=== PATIENT | female | born 1990 | race Caucasian/White ===

== ENCOUNTER 2018-03-20 07:09 | Emergency (ER) | payer MEDICAID ==
[~2018-03-20] VITALS: Ht 157.5 cm; Wt 84.1 kg
[2018-03-20 07:28] LABS: CLARITY,URINE CLEAR (Clear); COLOR,URINE YELLOW (Yellow); GLUCOSE, URINE NEGATIVE (Neg); KETONES,URINE NEGATIVE (Neg); LEUKOCYTE ESTERASE ,URINE NEGATIVE (Neg); NITRITES, URINE NEGATIVE (Neg); OCCULT BLOOD,URINE SMALL (Neg); PROTEIN,URINE TRACE mg/dl (Neg); URINE HCG NEGATIVE (NEG); UROBILINOGEN,URINE 0.2 E.U/dL (0.2-1.0)
[2018-03-20 07:32] LABS: UA COLLECTION TYPE CLN CATCH MIDSTREAM
[2018-03-20 07:37] LABS: BACTERIA,URINE 2+ /HPF (Neg); MUCUS STRANDS MODERATE /LPF (Neg); RBC,URINE 0-2 /HPF (0-2); SQUAMOUS EPITHELIAL CELL,UR MANY /LPF (FEW)
[2018-03-20 07:54] LABS: BASOPHILS # (AUTO) 0.1 X10'3 (0-0.2); BASOPHILS % (AUTO) 0.7 % (0-1); EOSINOPHILS # (AUTO) 0.4 X10'3 (0-0.9); EOSINOPHILS % (AUTO) 3.2 % (0-6); HEMATOCRIT 43.1 % (35.0-45.0); HEMOGLOBIN 14.4 g/dl (12.0-16.0); LYMPHOCYTES # (AUTO) 3.9 X10'3 (1.1-4.8); LYMPHOCYTES % (AUTO) 29.4 % (21-51); MEAN CORPUSCULAR HEMOGLOBIN 30.2 PG (27.0-31.0); MEAN CORPUSCULAR HGB CONC 33.4 % (33.0-36.5); MEAN CORPUSCULAR VOLUME 90.3 FL (78-98); MEAN PLATELET VOLUME 7.9 FL (7.4-10.4); MONOCYTES # (AUTO) 0.8 X10'3 (0-0.9); MONOCYTES % (AUTO) 5.8 % (2-12); NEUTROPHILS # (AUTO) 8.2 X10'3 (1.8-7.7); NEUTROPHILS % (AUTO) 60.9 % (42-75); PLATELET COUNT 467 X10'3 (140-440); RED BLOOD COUNT 4.78 X10'6 (4.20-5.60); RED CELL DISTRIBUTION WIDTH 13.5 % (11.5-14.5); WHITE BLOOD COUNT 13.4 X10'3 (4.5-11.0)
[2018-03-20] MEDS ORDERED: famotidine/PF 10 mg/ml inj IV ONE (08:00)
[2018-03-20] MEDS ORDERED: LIDOcaine Viscous 15ml cup PO ONE (08:00)
[2018-03-20] MEDS ORDERED: phenobarb/hyoscy/atropine/scop (Donnatal) 16.2mg tablet PO PRN (08:00)
[2018-03-20] MEDS ORDERED: morphine 4 MG/ML inj SYRINge IV ONE (08:00)
[2018-03-20] MEDS ORDERED: proCHLORperazine 10 MG/2 ml inj IV ONE (08:00)
[2018-03-20] MEDS ORDERED: normal saline 1000ML IV soln IVB ONE (08:00)
[2018-03-20] MEDS ORDERED: mag hydrox/Alum hydrox/simeth 30ml oral suspension PO ONE (08:00)
[2018-03-20 08:08] LABS: ALANINE AMINOTRANSFERASE 38 U/L (12-78); ALBUMIN 3.6 G/DL (3.4-5.0); ALKALINE PHOSPHATASE 107 IU/L (46-116); ANION GAP 9 (8-16); ASPARTATE AMINO TRANSFERASE 17 U/L (10-37); BILIRUBIN,TOTAL 0.4 MG/DL (0.1-1.0); BLOOD UREA NITROGEN 14 MG/DL (7-18); BUN/CREATININE RATIO 17.7 (6.6-38.0); CALCIUM 8.9 MG/DL (8.5-10.1); CHLORIDE 104 MMOL/L (99-107); CREATININE 0.79 MG/DL (0.40-0.90); GLUCOSE 93 MG/DL (70-104); LIPASE 116 U/L (73-393); SODIUM 140 MMOL/L (135-145); TOTAL CARBON DIOXIDE 27.3 MMOL/L (24-32); TOTAL PROTEIN 7.2 G/DL (6.4-8.2); eGFR 86 ML/MIN
[2018-03-20] MEDS ORDERED: ONDA8TAB9 PO (08:48)
[2018-03-20] MEDS ORDERED: PANT-47 PO (08:48)
[2018-03-20 09:13] VITALS: BP 130/65
== END 2018-03-20 09:10 | disposition home or self-care (01) ==
LOC: ER 07:09
DX: R10.13 Epigastric pain (principal); R11.2 Nausea with vomiting, unspecified; F17.200 Nicotine dependence, unspecified, uncomplicated; Z79.899 Other long term (current) drug therapy; Z88.1 Allergy status to other antibiotic agents
CPT/HCPCS: 36415; 80053; 81001; 81025; 83690; 85025; 96361; 96374; 96375; 99284; J0780; J2270; J3490

== ENCOUNTER 2019-03-30 20:37 | Emergency (ER) | payer MEDICAID ==
[~2019-03-30] VITALS: Ht 157.5 cm; Wt 84.5 kg
[~2019-03-30 20:37] MED LIST: ONDA8TAB9 PO; PANT-47 PO
[2019-03-30] MEDS ORDERED: acetaminophen 325mg tablet PO ONE (21:05)
[2019-03-30] MEDS ORDERED: normal saline 1000ML IV soln IVB ONE (21:35)
[2019-03-30] MEDS ORDERED: CefTRIAXone 2gm/D5W 50ml 50 ML IV ONE (21:35)
[2019-03-30] MEDS ORDERED: ondansetron/PF 4mg/2ml inj IV ONE (21:50)
[2019-03-30] MEDS: morphine 4 MG/ML inj SYRINge IV PRN ×2 (21:54→23:47)
[2019-03-30 22:09] LABS: BASOPHILS # (AUTO) 0.1 X10'3 (0-0.2); BASOPHILS % (AUTO) 0.3 % (0-1); EOSINOPHILS # (AUTO) 0.1 X10'3 (0-0.9); EOSINOPHILS % (AUTO) 0.4 % (0-6); HEMATOCRIT 42.9 % (35.0-45.0); HEMOGLOBIN 14.6 g/dl (12.0-16.0); LYMPHOCYTES # (AUTO) 1.9 X10'3 (1.1-4.8); LYMPHOCYTES % (AUTO) 8.5 % (21-51); MEAN CORPUSCULAR HEMOGLOBIN 30.1 PG (27.0-31.0); MEAN CORPUSCULAR HGB CONC 34.1 g/dL (33.0-36.5); MEAN CORPUSCULAR VOLUME 88.3 FL (78-98); MEAN PLATELET VOLUME 7.6 FL (7.4-10.4); MONOCYTES # (AUTO) 1.4 X10'3 (0-0.9); MONOCYTES % (AUTO) 6.4 % (2-12); NEUTROPHILS # (AUTO) 18.7 X10'3 (1.8-7.7); NEUTROPHILS % (AUTO) 84.4 % (42-75); PLATELET COUNT 420 X10'3 (140-440); RED BLOOD COUNT 4.86 X10'6 (4.20-5.60); RED CELL DISTRIBUTION WIDTH 13.8 % (11.5-14.5); WHITE BLOOD COUNT 22.1 X10'3 (4.5-11.0)
[2019-03-30 22:14] LABS: CLARITY,URINE CLEAR (Clear); GLUCOSE, URINE NEGATIVE (Neg); KETONES,URINE TRACE mg/dl (Neg); LEUKOCYTE ESTERASE ,URINE NEGATIVE (Neg); NITRITES, URINE NEGATIVE (Neg); OCCULT BLOOD,URINE TRACE-INTACT (Neg); PROTEIN,URINE NEGATIVE (Neg); UROBILINOGEN,URINE 0.2 E.U/dL (0.2-1.0)
[2019-03-30 22:17] LABS: COLOR,URINE YELLOW (Yellow); UA COLLECTION TYPE CLN CATCH MIDSTREAM
[2019-03-30 22:22] LABS: BACTERIA,URINE 1+ /HPF (Neg); RBC,URINE 0-2 /HPF (0-2); SQUAMOUS EPITHELIAL CELL,UR MODERATE /LPF (FEW)
[2019-03-30 22:25] LABS: PARTIAL THROMBOPLASTIN TIME 33 SECONDS (22-32)
[2019-03-30 22:27] LABS: ALANINE AMINOTRANSFERASE 39 U/L (12-78); ALBUMIN 3.9 G/DL (3.4-5.0); ALBUMIN/GLOBULIN RATIO 0.9 (1.1-1.5); ALKALINE PHOSPHATASE 117 IU/L (46-116); ANION GAP 10 (8-16); ASPARTATE AMINO TRANSFERASE 16 U/L (10-37); BILIRUBIN,TOTAL 0.4 MG/DL (0.1-1.0); BLOOD UREA NITROGEN 6 MG/DL (7-18); BUN/CREATININE RATIO 7.4 (6.6-38.0); CHLORIDE 103 MMOL/L (99-107); CREATININE 0.81 MG/DL (0.40-0.90); GLUCOSE 95 MG/DL (70-104); POTASSIUM 3.6 MMOL/L (3.5-5.1); SODIUM 138 MMOL/L (135-145); TOTAL CARBON DIOXIDE 24.7 MMOL/L (24-32); TOTAL PROTEIN 8.1 G/DL (6.4-8.2); eGFR 83 ML/MIN
[2019-03-30] MEDS ORDERED: CEPH500C5 PO (23:46)
[2019-03-30] MEDS ORDERED: ONDA4TAB12 PO (23:46)
[2019-03-30] MEDS ORDERED: HYDR-3965 PO (23:46)
[2019-03-30 23:57] VITALS: BP 98/50
[2019-03-31] MEDS ORDERED: HYDR-3965 PO (10:35)
[2019-03-31] MEDS ORDERED: CEPH-572 PO (10:35)
[2019-03-31] MEDS ORDERED: ONDA4TAB12 PO (10:35)
== END 2019-03-31 | disposition home or self-care (01) ==
LOC: ER 20:38
DX: N12 Tubulo-interstitial nephritis, not specified as acute or chronic (principal); K21.9 Gastro-esophageal reflux disease without esophagitis; F17.210 Nicotine dependence, cigarettes, uncomplicated; Z88.1 Allergy status to other antibiotic agents; Z79.899 Other long term (current) drug therapy
CPT/HCPCS: 36415; 71045; 74176; 80053; 81001; 83605; 84145; 85025; 85610; 85730; 87040; 87088; 96365; 96366; 96375; 96376; 99284; J0696; J2270; J2405; J7030

== ENCOUNTER 2021-02-23 11:07 | Emergency (ER) | payer MEDICAID ==
[~2021-02-23] VITALS: Ht 157.5 cm; Wt 90.9 kg
[~2021-02-23 11:07] MED LIST changes: +ONDA4TAB12 PO
[2021-02-23 12:30] VITALS: BP 140/83
[2021-02-23] MEDS ORDERED: HYDR-3965 PO (12:51)
== END 2021-02-23 13:45 | disposition home or self-care (01) ==
LOC: ER 11:07
DX: S86.812A Strain of other muscle(s) and tendon(s) at lower leg level, left leg, initial encounter (principal); W22.8XXA Striking against or struck by other objects, initial encounter; Y93.89 Activity, other specified; Y92.89 Other specified places as the place of occurrence of the external cause; Y99.8 Other external cause status; K21.9 Gastro-esophageal reflux disease without esophagitis; Z88.1 Allergy status to other antibiotic agents; Z79.899 Other long term (current) drug therapy
CPT/HCPCS: 99283

== ENCOUNTER 2022-05-24 09:02 | Emergency (ER) | payer MEDICAID ==
[~2022-05-24] VITALS: Ht 157.5 cm; Wt 195.0 kg
[2022-05-24 09:21] VITALS: BP 125/80
[2022-05-24] MEDS ORDERED: normal saline 1000ML IV soln IVB ONE (09:35)
[2022-05-24] MEDS ORDERED: ondansetron/PF 4mg/2ml inj IV ONE (09:35)
[2022-05-24 09:46] LABS: BASOPHILS % (AUTO) 0.2 % (0-1); EOSINOPHILS # (AUTO) 0.3 X10'3 (0-0.9); LYMPHOCYTES # (AUTO) 3.5 X10'3 (1.1-4.8); LYMPHOCYTES % (AUTO) 26.7 % (21-51); MEAN CORPUSCULAR HGB CONC 33.4 g/dL (33.0-36.5); MEAN CORPUSCULAR VOLUME 92.6 FL (78-98); MEAN PLATELET VOLUME 7.1 FL (7.4-10.4); MONOCYTES # (AUTO) 0.9 X10'3 (0-0.9); MONOCYTES % (AUTO) 6.5 % (2-12); NEUTROPHILS # (AUTO) 8.5 X10'3 (1.8-7.7); NEUTROPHILS % (AUTO) 64.6 % (42-75); PLATELET COUNT 434 X10'3 (140-440); RED BLOOD COUNT 4.54 X10'6 (4.20-5.60); RED CELL DISTRIBUTION WIDTH 14.2 % (11.5-14.5); WHITE BLOOD COUNT 13.1 X10'3 (4.5-11.0)
[2022-05-24 09:58] LABS: ALANINE AMINOTRANSFERASE 33 U/L (12-78); ALBUMIN 3.6 G/DL (3.4-5.0); ALBUMIN/GLOBULIN RATIO 1.1 (1.1-1.5); ALKALINE PHOSPHATASE 97 IU/L (46-116); ASPARTATE AMINO TRANSFERASE 13 U/L (10-37); BILIRUBIN,TOTAL 0.3 MG/DL (0.1-1.0); BLOOD UREA NITROGEN 13 MG/DL (7-18); BUN/CREATININE RATIO 18.3 (6.6-38.0); CALCIUM 8.9 MG/DL (8.5-10.1); CHLORIDE 106 MMOL/L (99-107); CREATININE 0.71 MG/DL (0.40-0.90); GLUCOSE 100 MG/DL (70-104); LIPASE 173 U/L (73-393); POTASSIUM 4.2 MMOL/L (3.5-5.1); TOTAL CARBON DIOXIDE 27.8 MMOL/L (24-32); TOTAL PROTEIN 6.8 G/DL (6.4-8.2); eGFR > 90 ML/MIN
[2022-05-24 10:05] LABS: ANION GAP 4 (8-16); SODIUM 138 MMOL/L (135-145)
[2022-05-24 12:19] LABS: HCG SERUM QL NEGATIVE
[2022-05-24] MEDS ORDERED: HYDR-3965 PO (15:49)
[2022-05-24] MEDS ORDERED: ONDA4TAB12 PO (15:49)
[2022-05-24] MEDS ORDERED: ketorolac trometh. 30mg/ml inj. IV ONE (15:50)
--- NOTE | 2022-05-24 15:59 | NUR ---
I agree with the general assessment performed by Jessie GARDNER.
[2022-05-24 16:05] LABS: COLOR,URINE YELLOW (Yellow); GLUCOSE, URINE NEGATIVE (Neg); KETONES,URINE NEGATIVE (Neg); LEUKOCYTE ESTERASE ,URINE MODERATE (Neg); NITRITES, URINE NEGATIVE (Neg); OCCULT BLOOD,URINE SMALL (Neg); PROTEIN,URINE NEGATIVE (Neg); UROBILINOGEN,URINE 0.2 E.U/dL (0.2-1.0)
[2022-05-24 16:13] LABS: UA COLLECTION TYPE CLN CATCH MIDSTREAM
[2022-05-24 16:14] LABS: CLARITY,URINE CLOUDY (Clear)
[2022-05-24 16:15] LABS: BACTERIA,URINE 3+ /HPF (Neg); MUCUS STRANDS MANY /LPF (Neg)
[2022-05-24 16:16] LABS: SQUAMOUS EPITHELIAL CELL,UR MANY /LPF (FEW)
== END 2022-05-24 16:25 | disposition home or self-care (01) ==
LOC: ER 09:02
DX: K80.50 Calculus of bile duct without cholangitis or cholecystitis without obstruction (principal); F17.200 Nicotine dependence, unspecified, uncomplicated; K21.9 Gastro-esophageal reflux disease without esophagitis; Z88.1 Allergy status to other antibiotic agents; Z79.899 Other long term (current) drug therapy
CPT/HCPCS: 36415; 74176; 76700; 80053; 81001; 83690; 84703; 85025; 96361; 96374; 96375; 99284; J1885; J2405; J7030

== ENCOUNTER 2022-06-22 22:45 | Emergency (ER) | payer MEDICAID ==
[~2022-06-22] VITALS: Ht 157.5 cm; Wt 88.6 kg
[~2022-06-22 22:45] MED LIST changes: +HYDR-3965 PO
[2022-06-22 23:09] LABS: BASOPHILS # (AUTO) 0.1 X10'3 (0-0.2); BASOPHILS % (AUTO) 0.5 % (0-1); EOSINOPHILS # (AUTO) 0.3 X10'3 (0-0.9); EOSINOPHILS % (AUTO) 2.6 % (0-6); HEMATOCRIT 42.8 % (35.0-45.0); HEMOGLOBIN 14.4 g/dl (12.0-16.0); LYMPHOCYTES % (AUTO) 40.5 % (21-51); MEAN CORPUSCULAR HEMOGLOBIN 30.7 PG (27.0-31.0); MEAN CORPUSCULAR HGB CONC 33.5 g/dL (33.0-36.5); MEAN CORPUSCULAR VOLUME 91.7 FL (78-98); MEAN PLATELET VOLUME 7.3 FL (7.4-10.4); MONOCYTES % (AUTO) 7.8 % (2-12); NEUTROPHILS % (AUTO) 48.6 % (42-75); PLATELET COUNT 468 X10'3 (140-440); RED BLOOD COUNT 4.67 X10'6 (4.20-5.60); RED CELL DISTRIBUTION WIDTH 13.8 % (11.5-14.5); WHITE BLOOD COUNT 12.4 X10'3 (4.5-11.0)
[2022-06-22 23:11] VITALS: BP 144/93
[2022-06-22 23:20] LABS: ALANINE AMINOTRANSFERASE 62 U/L (12-78); ALBUMIN 3.9 G/DL (3.4-5.0); ALBUMIN/GLOBULIN RATIO 1.1 (1.1-1.5); ALKALINE PHOSPHATASE 108 IU/L (46-116); ANION GAP 8 (8-16); ASPARTATE AMINO TRANSFERASE 27 U/L (10-37); BILIRUBIN,TOTAL 0.2 MG/DL (0.1-1.0); BLOOD UREA NITROGEN 17 MG/DL (7-18); BUN/CREATININE RATIO 17.2 (6.6-38.0); CALCIUM 8.9 MG/DL (8.5-10.1); CHLORIDE 105 MMOL/L (99-107); CREATININE 0.99 MG/DL (0.40-0.90); GLUCOSE 106 MG/DL (70-104); LIPASE 141 U/L (73-393); SODIUM 140 MMOL/L (135-145); TOTAL CARBON DIOXIDE 26.6 MMOL/L (24-32); TOTAL PROTEIN 7.5 G/DL (6.4-8.2); eGFR 65 ML/MIN
[2022-06-23 01:43] LABS: CLARITY,URINE SLIGHTLY CLOUDY (Clear); COLOR,URINE YELLOW (Yellow); GLUCOSE, URINE NEGATIVE (Neg); KETONES,URINE TRACE mg/dl (Neg); LEUKOCYTE ESTERASE ,URINE TRACE (Neg); NITRITES, URINE NEGATIVE (Neg); OCCULT BLOOD,URINE MODERATE (Neg); PROTEIN,URINE NEGATIVE (Neg); UROBILINOGEN,URINE 0.2 E.U/dL (0.2-1.0)
[2022-06-23 01:44] LABS: URINE HCG NEGATIVE (NEG)
[2022-06-23 02:00] LABS: UA COLLECTION TYPE CLN CATCH MIDSTREAM
[2022-06-23 02:10] LABS: MUCUS STRANDS FEW /LPF (Neg); SQUAMOUS EPITHELIAL CELL,UR MANY /LPF (FEW)
[2022-06-23 02:11] LABS: BACTERIA,URINE 1+ /HPF (Neg); WBC,URINE 30-50 /HPF (0-4)
== END 2022-06-23 08:07 | disposition left against medical advice (07) ==
LOC: ER 22:46
DX: R10.11 Right upper quadrant pain (principal); Z53.21 Procedure and treatment not carried out due to patient leaving prior to being seen by health care provider
CPT/HCPCS: 36415; 80053; 81001; 81025; 83690; 85025

== ENCOUNTER 2022-07-12 08:39 | Emergency (ER) | payer MEDICAID ==
[~2022-07-12] VITALS: Ht 157.5 cm; Wt 84.1 kg
[~2022-07-12 08:39] MED LIST changes: -HYDR-3965 PO
[2022-07-12] MEDS ORDERED: ondansetron/PF 4mg/2ml inj IV ONE ×2 (09:00→09:15)
[2022-07-12] MEDS ORDERED: morphine 4 MG/ML inj SYRINge IV PRN (09:15)
[2022-07-12] MEDS ORDERED: normal saline 1000ML IV soln IVB ONE (09:15)
[2022-07-12 09:16] LABS: ALANINE AMINOTRANSFERASE 110 U/L (12-78); ALBUMIN 3.9 G/DL (3.4-5.0); ALBUMIN/GLOBULIN RATIO 1.1 (1.1-1.5); ALKALINE PHOSPHATASE 101 IU/L (46-116); ANION GAP 10 (8-16); ASPARTATE AMINO TRANSFERASE 46 U/L (10-37); BILIRUBIN,TOTAL 0.5 MG/DL (0.1-1.0); BLOOD UREA NITROGEN 11 MG/DL (7-18); BUN/CREATININE RATIO 13.9 (6.6-38.0); CALCIUM 9.8 MG/DL (8.5-10.1); CHLORIDE 104 MMOL/L (99-107); CREATININE 0.79 MG/DL (0.40-0.90); GLUCOSE 104 MG/DL (70-104); LIPASE 95 U/L (73-393); POTASSIUM 3.8 MMOL/L (3.5-5.1); SODIUM 138 MMOL/L (135-145); TOTAL CARBON DIOXIDE 23.8 MMOL/L (24-32); TOTAL PROTEIN 7.4 G/DL (6.4-8.2); eGFR 84 ML/MIN
[2022-07-12 09:27] LABS: BASOPHILS % (AUTO) 0.4 % (0-1); EOSINOPHILS # (AUTO) 0.1 X10'3 (0-0.9); EOSINOPHILS % (AUTO) 0.8 % (0-6); HEMATOCRIT 41.8 % (35.0-45.0); HEMOGLOBIN 14.2 g/dl (12.0-16.0); LYMPHOCYTES % (AUTO) 14.6 % (21-51); MEAN CORPUSCULAR HEMOGLOBIN 31.1 PG (27.0-31.0); MEAN CORPUSCULAR VOLUME 91.4 FL (78-98); MONOCYTES # (AUTO) 0.7 X10'3 (0-0.9); MONOCYTES % (AUTO) 5.3 % (2-12); NEUTROPHILS # (AUTO) 10.7 X10'3 (1.8-7.7); NEUTROPHILS % (AUTO) 78.9 % (42-75); PLATELET COUNT 410 X10'3 (140-440); RED BLOOD COUNT 4.58 X10'6 (4.20-5.60); RED CELL DISTRIBUTION WIDTH 13.4 % (11.5-14.5); WHITE BLOOD COUNT 13.6 X10'3 (4.5-11.0)
[2022-07-12 10:51] VITALS: BP 108/70
== END 2022-07-12 10:52 | disposition home or self-care (01) ==
LOC: ER 08:39
DX: K80.50 Calculus of bile duct without cholangitis or cholecystitis without obstruction (principal); K21.9 Gastro-esophageal reflux disease without esophagitis; Z72.89 Other problems related to lifestyle; Z88.1 Allergy status to other antibiotic agents; Z79.899 Other long term (current) drug therapy
CPT/HCPCS: 36415; 76700; 80053; 83690; 85025; 96361; 96374; 96375; 99285; J2270; J2405; J7030

== ENCOUNTER 2022-07-13 21:00 | Emergency (ER) | payer MEDICAID ==
[~2022-07-13] VITALS: Ht 157.5 cm; Wt 85.4 kg
[2022-07-13 21:29] LABS: BASOPHILS % (AUTO) 0.2 % (0-1); EOSINOPHILS # (AUTO) 0.2 X10'3 (0-0.9); EOSINOPHILS % (AUTO) 1.3 % (0-6); HEMATOCRIT 42.2 % (35.0-45.0); HEMOGLOBIN 14.3 g/dl (12.0-16.0); LYMPHOCYTES % (AUTO) 27.7 % (21-51); MEAN CORPUSCULAR HEMOGLOBIN 31.1 PG (27.0-31.0); MEAN CORPUSCULAR HGB CONC 33.8 g/dL (33.0-36.5); MEAN PLATELET VOLUME 8.1 FL (7.4-10.4); MONOCYTES % (AUTO) 6.9 % (2-12); NEUTROPHILS # (AUTO) 9.3 X10'3 (1.8-7.7); NEUTROPHILS % (AUTO) 63.9 % (42-75); PLATELET COUNT 433 X10'3 (140-440); RED BLOOD COUNT 4.59 X10'6 (4.20-5.60); RED CELL DISTRIBUTION WIDTH 13.7 % (11.5-14.5); WHITE BLOOD COUNT 14.6 X10'3 (4.5-11.0)
[2022-07-13 21:41] LABS: ALANINE AMINOTRANSFERASE 105 U/L (12-78); ALBUMIN/GLOBULIN RATIO 1.1 (1.1-1.5); ALKALINE PHOSPHATASE 98 IU/L (46-116); ANION GAP 6 (8-16); ASPARTATE AMINO TRANSFERASE 38 U/L (10-37); BILIRUBIN,TOTAL 0.3 MG/DL (0.1-1.0); BLOOD UREA NITROGEN 14 MG/DL (7-18); BUN/CREATININE RATIO 15.6 (6.6-38.0); CALCIUM 9.8 MG/DL (8.5-10.1); CHLORIDE 104 MMOL/L (99-107); GLUCOSE 103 MG/DL (70-104); LIPASE 134 U/L (73-393); POTASSIUM 4.1 MMOL/L (3.5-5.1); SODIUM 137 MMOL/L (135-145); TOTAL CARBON DIOXIDE 26.7 MMOL/L (24-32); TOTAL PROTEIN 7.5 G/DL (6.4-8.2); eGFR 72 ML/MIN
[2022-07-14 00:44] LABS: ALANINE AMINOTRANSFERASE 107 U/L (12-78); ALBUMIN 4.2 G/DL (3.4-5.0); ALBUMIN/GLOBULIN RATIO 1.2 (1.1-1.5); ALKALINE PHOSPHATASE 99 IU/L (46-116); ANION GAP 10 (8-16); ASPARTATE AMINO TRANSFERASE 36 U/L (10-37); BILIRUBIN,TOTAL 0.4 MG/DL (0.1-1.0); BLOOD UREA NITROGEN 14 MG/DL (7-18); BUN/CREATININE RATIO 15.4 (6.6-38.0); CHLORIDE 102 MMOL/L (99-107); CREATININE 0.91 MG/DL (0.40-0.90); GLUCOSE 127 MG/DL (70-104); POTASSIUM 3.9 MMOL/L (3.5-5.1); SODIUM 137 MMOL/L (135-145); TOTAL CARBON DIOXIDE 24.6 MMOL/L (24-32); TOTAL PROTEIN 7.8 G/DL (6.4-8.2); eGFR 71 ML/MIN
[2022-07-14 00:46] LABS: BASOPHILS % (AUTO) 0.2 % (0-1); EOSINOPHILS % (AUTO) 0 % (0-6); HEMATOCRIT 41.6 % (35.0-45.0); HEMOGLOBIN 14.2 g/dl (12.0-16.0); LYMPHOCYTES % (AUTO) 12.1 % (21-51); MEAN CORPUSCULAR HEMOGLOBIN 31.5 PG (27.0-31.0); MEAN CORPUSCULAR HGB CONC 34.3 g/dL (33.0-36.5); MEAN PLATELET VOLUME 8.1 FL (7.4-10.4); MONOCYTES # (AUTO) 0.6 X10'3 (0-0.9); MONOCYTES % (AUTO) 3.4 % (2-12); NEUTROPHILS # (AUTO) 14.1 X10'3 (1.8-7.7); NEUTROPHILS % (AUTO) 84.3 % (42-75); PLATELET COUNT 432 X10'3 (140-440); RED BLOOD COUNT 4.52 X10'6 (4.20-5.60); RED CELL DISTRIBUTION WIDTH 13.3 % (11.5-14.5); WHITE BLOOD COUNT 16.7 X10'3 (4.5-11.0)
[2022-07-14 00:51] LABS: MAGNESIUM 2.1 MG/DL (1.5-2.4)
[2022-07-14] MEDS ORDERED: morphine 4 MG/ML inj SYRINge IV ONE (03:00)
[2022-07-14] MEDS ORDERED: ketorolac trometh. 30mg/ml inj. IV ONE (03:00)
[2022-07-14] MEDS ORDERED: ondansetron/PF 4mg/2ml inj IV ONE (03:00)
[2022-07-14] MEDS ORDERED: ONDA8TAB13 PO (03:59)
[2022-07-14] MEDS ORDERED: HYDR-3965 PO (03:59)
[2022-07-14 04:18] VITALS: BP 111/69
== END 2022-07-14 04:20 | disposition home or self-care (01) ==
LOC: ER 21:01
DX: K80.20 Calculus of gallbladder without cholecystitis without obstruction (principal); K21.9 Gastro-esophageal reflux disease without esophagitis; F17.200 Nicotine dependence, unspecified, uncomplicated; Z72.89 Other problems related to lifestyle; Z88.1 Allergy status to other antibiotic agents; Z79.899 Other long term (current) drug therapy
CPT/HCPCS: 36415; 80053; 83690; 83735; 83880; 84145; 84484; 85025; 93005; 96374; 96375; 99285; J1885; J2270; J2405

== ENCOUNTER 2022-08-01 12:35 | Inpatient (IN) | payer MEDICAID ==
[~2022-08-01] VITALS: Ht 157.5 cm; Wt 80.0 kg
[2022-08-01] VITALS (16 sets, daily range): BP systolic 95–119; BP diastolic 50–78
[~2022-08-01 12:35] MED LIST changes: +HYDR-3965 PO; +ONDA8TAB13 PO
[2022-08-01 13:06] LABS: BASOPHILS # (AUTO) 0.1 X10'3 (0-0.2); BASOPHILS % (AUTO) 0.5 % (0-1); EOSINOPHILS # (AUTO) 0.1 X10'3 (0-0.9); EOSINOPHILS % (AUTO) 0.5 % (0-6); HEMATOCRIT 44.6 % (35.0-45.0); HEMOGLOBIN 14.6 g/dl (12.0-16.0); LYMPHOCYTES # (AUTO) 2.6 X10'3 (1.1-4.8); LYMPHOCYTES % (AUTO) 17.9 % (21-51); MEAN CORPUSCULAR HEMOGLOBIN 30.4 PG (27.0-31.0); MEAN CORPUSCULAR HGB CONC 32.7 g/dL (33.0-36.5); MEAN CORPUSCULAR VOLUME 92.7 FL (78-98); MEAN PLATELET VOLUME 7.9 FL (7.4-10.4); MONOCYTES % (AUTO) 7.2 % (2-12); NEUTROPHILS # (AUTO) 10.7 X10'3 (1.8-7.7); NEUTROPHILS % (AUTO) 73.9 % (42-75); PLATELET COUNT 392 X10'3 (140-440); RED BLOOD COUNT 4.81 X10'6 (4.20-5.60); WHITE BLOOD COUNT 14.5 X10'3 (4.5-11.0)
[2022-08-01] MEDS ORDERED: morphine 4 MG/ML inj SYRINge IV ONE (13:15)
[2022-08-01] MEDS ORDERED: normal saline 1000ml 1,000 ML IV ONE (13:15)
[2022-08-01] MEDS ORDERED: ondansetron/PF 4mg/2ml inj IV ONE (13:15)
[2022-08-01 13:16] LABS: ALANINE AMINOTRANSFERASE 144 U/L (12-78); ALBUMIN 3.8 G/DL (3.4-5.0); ALKALINE PHOSPHATASE 116 IU/L (46-116); ANION GAP 12 (8-16); ASPARTATE AMINO TRANSFERASE 58 U/L (10-37); BILIRUBIN,TOTAL 0.7 MG/DL (0.1-1.0); BLOOD UREA NITROGEN 7 MG/DL (7-18); BUN/CREATININE RATIO 11.1 (6.6-38.0); CALCIUM 9.5 MG/DL (8.5-10.1); CHLORIDE 104 MMOL/L (99-107); CREATININE 0.63 MG/DL (0.40-0.90); GLUCOSE 87 MG/DL (70-104); LIPASE 73 U/L (73-393); POTASSIUM 3.8 MMOL/L (3.5-5.1); SODIUM 137 MMOL/L (135-145); TOTAL CARBON DIOXIDE 20.7 MMOL/L (24-32); TOTAL PROTEIN 7.5 G/DL (6.4-8.2); eGFR > 90 ML/MIN
[2022-08-01] MEDS ORDERED: piperacillin/tazo 3.375gm/50ml 50 ML IV ONE (14:00)
[2022-08-01] MEDS ORDERED: INDOCYANINE GREEN 25 MG/10 ML VIAL IV ONE (14:10)
[2022-08-01] MEDS ORDERED: ondansetron/PF 4mg/2ml inj IV PRN ×2 (14:15→15:00)
[2022-08-01] MEDS ORDERED: morphine 2 MG/ML inj. syringe IV PRN ×3 (14:15→15:00)
[2022-08-01] MEDS ORDERED: HYDROcodone/acetaminophen 10/325mg tab PO PRN ×2 (14:15→16:40)
[2022-08-01] MEDS ORDERED: potassium Cl 40MEQ/1/2NS 520ml 520 ML IV PRN (14:15)
[2022-08-01] MEDS ORDERED: magnesium 4gm in 100ml NS 100 ML IV PRN (14:15)
[2022-08-01] MEDS: normal saline 1000ml 1,000 ML IV SCH (14:15)
[2022-08-01] MEDS ORDERED: magnesium Cl slow-release 64mg tablet PO PRN (14:15)
[2022-08-01] MEDS ORDERED: acetaminophen 325mg tablet PO PRN ×2 (14:15)
[2022-08-01] MEDS ORDERED: potassium Cl 20 mEq SR tablet PO PRN ×2 (14:15)
[2022-08-01] MEDS ORDERED: proCHLORperazine 10 MG/2 ml inj IV PRN (15:00)
[2022-08-01] MEDS ORDERED: meperidine/PF 25mg/ml syringe IV PRN ×3 (15:00)
[2022-08-01] MEDS ORDERED: morphine 4 MG/ML inj SYRINge IV PRN (15:00)
[2022-08-01] MEDS ORDERED: ringers solution, lacted 1,000 ML IV SCH (15:00)
[2022-08-01] MEDS ORDERED: BUPIVAcaine 0.5% inj/PF 30 ML ONE (15:08)
[2022-08-01] MEDS ORDERED: LIDOcaine 1% 30ml preserv. free vial ONE (15:08)
[2022-08-01] MEDS ORDERED: sevoflurane 250ml liquid IH ONE (15:14)
[2022-08-01] MEDS ORDERED: LIDOcaine 2% (20mg/ml) 5ml vial ONE (15:14)
[2022-08-01] MEDS ORDERED: propofol inj 20 ML IV ONE (15:18)
[2022-08-01] MEDS ORDERED: rocuronium 10mg/ml inj IV ONE (15:18)
[2022-08-01] MEDS ORDERED: fentaNYL/PF 50MCG/1 ML 2ML syringe ONE (15:18)
[2022-08-01] MEDS ORDERED: midazolam 1 mg/ML 2ml injection ONE (15:18)
[2022-08-01] MEDS ORDERED: ondansetron/PF 4mg/2ml inj ONE (15:31)
[2022-08-01] MEDS ORDERED: dexamethasone sod phosphate 4mg/ml inj. ONE (15:31)
[2022-08-01] MEDS ORDERED: BUPIVAcaine 0.5% inj/PF 30 ml vial IJ ONE (15:45)
[2022-08-01] MEDS ORDERED: piperacillin/tazo 3.375gm/50ml 50 ML IV SCH ×2 (16:00→17:33)
[2022-08-01] MEDS ORDERED: neostigmine methylsulfate 1 MG/ML 10ml vial ONE (16:15)
[2022-08-01] MEDS ORDERED: glycopyrrolate 0.2mg/ml inj ONE (16:15)
[2022-08-01] MEDS ORDERED: HYDROcodone/acetaminophen 5mg/325mg tablet PO PRN (16:40)
[2022-08-01] MEDS ORDERED: naloxone 0.4 mg/ml inj IV PRN (16:40)
--- NOTE | 2022-08-01 16:40 | NUR ---
PT ARRIVED TO VIA BED ACCOMPANIED BY DR QUINTANILLA-ANESTHESIA REPORT GIVEN, PT WAKING UP, VSS, DENIES PAIN, LAP SITES X 4-COVERED CDI
[2022-08-01] MEDS ORDERED: acetaminophen 1,000mg/100ml IV 100 ML IV ONE (17:05)
--- NOTE | 2022-08-01 17:26 | NUR ---
Report received from recovery nurse Melissa, awaiting pt to unit
--- NOTE | 2022-08-01 17:50 | NUR ---
PT AWAKE, COMFORTABLE, VSS, TALKING ON PHONE WITH FAMILY, NO CHANGES IN ASSESSMENT, LAP SITES-CDI, REPORT CALLED TO VETO MACHUCA-ALL QUESTIONS ANSWERED, PT TAKEN VIA BED WITH BELONGINGS TO ROOM, BED LOW AND LOCKED, PRIMARY RN IN TO RECEIVE PT, CALL LIGHT IN REACH.
--- NOTE | 2022-08-01 17:55 | NUR ---
pt arrived to [facility], VSS, pt alert, oriented, and appropriate. 4 Lap sites CDI.
--- NOTE | 2022-08-01 18:07 | NUR ---
Patient in room [facility]. I have received report from Radha GARDNER and had the opportunity to ask questions and assume patient care.
--- NOTE | 2022-08-01 18:25 | NUR ---
Problems reprioritized. Patient report given, questions answered & plan of care reviewed with DIDI MACHUCA.
[2022-08-01] MEDS: HYDROcodone/acetaminophen 5mg/325mg tablet PO PRN (19:55)
[2022-08-01] MEDS: heparin, porcine 5000 units/ml vial SQ SCH (19:56)
[2022-08-01] MEDS: piperacillin/tazo 3.375gm/50ml 50 ML IV SCH (19:57)
[2022-08-01] MEDS: K and/or MAG REPLACEMENT MC SCH (20:00)
[2022-08-01] MEDS ORDERED: NO HOME MEDS (20:23)
[2022-08-01] MEDS ORDERED: temazepam 15mg capsule PO PRN (21:00)
[2022-08-02] MEDS: normal saline 1000ml 1,000 ML IV SCH ×2 (00:15→02:30)
[2022-08-02] MEDS: HYDROcodone/acetaminophen 5mg/325mg tablet PO PRN ×2 (00:19→10:58)
[2022-08-02 02:00] VITALS: BP 97/49
[2022-08-02] MEDS: piperacillin/tazo 3.375gm/50ml 50 ML IV SCH (03:18)
[2022-08-02 04:06] LABS: BASOPHILS % (AUTO) 0.1 % (0-1); EOSINOPHILS % (AUTO) 0 % (0-6); HEMOGLOBIN 12.9 g/dl (12.0-16.0); MEAN CORPUSCULAR HEMOGLOBIN 31.3 PG (27.0-31.0); MEAN CORPUSCULAR HGB CONC 33.9 g/dL (33.0-36.5); MEAN CORPUSCULAR VOLUME 92.3 FL (78-98); MONOCYTES # (AUTO) 0.3 X10'3 (0-0.9); MONOCYTES % (AUTO) 2.4 % (2-12); NEUTROPHILS # (AUTO) 12.7 X10'3 (1.8-7.7); NEUTROPHILS % (AUTO) 90.5 % (42-75); PLATELET COUNT 347 X10'3 (140-440); RED BLOOD COUNT 4.11 X10'6 (4.20-5.60); RED CELL DISTRIBUTION WIDTH 14.1 % (11.5-14.5)
[2022-08-02 04:30] LABS: ALANINE AMINOTRANSFERASE 129 U/L (12-78); ALBUMIN 3.2 G/DL (3.4-5.0); ALKALINE PHOSPHATASE 96 IU/L (46-116); ANION GAP 11 (8-16); ASPARTATE AMINO TRANSFERASE 69 U/L (10-37); BILIRUBIN,TOTAL 0.7 MG/DL (0.1-1.0); BLOOD UREA NITROGEN 4 MG/DL (7-18); BUN/CREATININE RATIO 6.5 (6.6-38.0); CALCIUM 8.8 MG/DL (8.5-10.1); CHLORIDE 104 MMOL/L (99-107); CREATININE 0.62 MG/DL (0.40-0.90); GLUCOSE 111 MG/DL (70-104); POTASSIUM 3.7 MMOL/L (3.5-5.1); SODIUM 136 MMOL/L (135-145); TOTAL CARBON DIOXIDE 21.1 MMOL/L (24-32); TOTAL PROTEIN 6.4 G/DL (6.4-8.2); eGFR > 90 ML/MIN
[2022-08-02 05:00] VITALS: BP 130/62
--- NOTE | 2022-08-02 06:30 | NUR ---
Problems reprioritized. Patient report given, questions answered & plan of care reviewed with Radha GARDNER.
[2022-08-02] MEDS: K and/or MAG REPLACEMENT MC SCH (08:00)
[2022-08-02] MEDS: heparin, porcine 5000 units/ml vial SQ SCH (08:05)
[2022-08-02 10:00] VITALS: BP 92/53
[2022-08-02] MEDS ORDERED: HYDR-3965 PO (10:45)
[2022-08-02] MEDS ORDERED: normal saline 1000ml 1,000 ML IV SCH (11:20)
== END 2022-08-02 11:28 | disposition home or self-care (01) | DRG 263 ==
LOC: ER 12:35 → ED HOLD 14:19 → SUR 3N 17:50
PROVIDERS: ADMIT Internal Medicine; ATTEND Internal Medicine
PROC: 8E0W4CZ Robotic Assisted Procedure of Trunk Region, Percutaneous Endoscopic Approach (ICD-10-PCS; 2022-08-01)
PROC: BF532Z0 Other Imaging of Gallbladder and Bile Ducts using Fluorescing Agent, Intraoperative (ICD-10-PCS; 2022-08-01)
PROC: 0FT44ZZ Resection of Gallbladder, Percutaneous Endoscopic Approach (ICD-10-PCS; principal; 2022-08-01 15:14)
DX: K80.63 Calculus of gallbladder and bile duct with acute cholecystitis with obstruction (principal); E66.9 Obesity, unspecified; F17.210 Nicotine dependence, cigarettes, uncomplicated; K21.9 Gastro-esophageal reflux disease without esophagitis; Z68.32 Body mass index [BMI] 32.0-32.9, adult; Z71.6 Tobacco abuse counseling; Z79.899 Other long term (current) drug therapy
CPT/HCPCS: 36415; 71045; 76700; 80053; 83605; 83690; 85025; 85610; 87040; 87081; 99285; A4215; A4618; A7000; G0378; J0131; J1100; J1644; J2250; J2405; J2543; J2704; J2710; J3010; J3490; J7030; J7120; S0020

== ENCOUNTER 2022-08-17 16:12 | Emergency (ER) | payer MEDICAID ==
[~2022-08-17] VITALS: Ht 157.5 cm; Wt 81.8 kg
[~2022-08-17 16:12] MED LIST changes: -ONDA4TAB12 PO; -ONDA8TAB13 PO; -ONDA8TAB9 PO; -PANT-47 PO
[2022-08-17 16:23] VITALS: BP 111/72
[2022-08-17] MEDS ORDERED: AMOX-117 PO (16:58)
[2022-08-17] MEDS ORDERED: amox tr/potassium clavulanate 875/125mg TAB PO ONE (17:00)
== END 2022-08-17 17:17 | disposition home or self-care (01) ==
LOC: ER 16:13
DX: S61.236A Puncture wound without foreign body of right little finger without damage to nail, initial encounter (principal); K21.9 Gastro-esophageal reflux disease without esophagitis; Z72.89 Other problems related to lifestyle; Z88.1 Allergy status to other antibiotic agents; Z79.899 Other long term (current) drug therapy; W54.0XXA Bitten by dog, initial encounter; Y93.89 Activity, other specified; Y92.89 Other specified places as the place of occurrence of the external cause; Y99.8 Other external cause status
CPT/HCPCS: 99283

== ENCOUNTER 2024-11-16 10:34 | Outpatient (CLI) | payer MEDICAID ==
--- NOTE | 2024-11-17 04:54 | RADIOLOGY REPORT ---
INDICATION: DISPLACEMENT OF INTRAUTERINE CONTRACEPTIVE DEVICE, SUBS TECHNIQUE: Real time transabdominal and endovaginal ultrasound imaging of the pelvis was pe rformed with hilliard scale, color flow, and spectral Doppler. COMPARISON: None FINDINGS: The uterus is anteverted and measures 7.5 x 7.8 x 3.8 cm. There is an IUD within the endometrial ca vity. Right ovary is not visualized Left ovary measures 2.3 x 2.4 x 1.1 cm with arterial and venous flow. No significant free fluid. No free fluid. IMPRESSION: IUD within the endometrial cavity. Nonvisualization of the right ovary.
== END 2024-11-16 23:59 | disposition home or self-care (01) ==
LOC: RAD 10:34
PROVIDERS: ATTEND Family Medicine
DX: T83.32XD Displacement of intrauterine contraceptive device, subsequent encounter (principal); N85.4 Malposition of uterus; Y82.8 Other medical devices associated with adverse incidents
CPT/HCPCS: 76830; 76857; 93976